=== PATIENT | female | born 1975 | race Caucasian/White ===

== ENCOUNTER 2016-05-19 19:24 | Emergency (ER) | payer OTHER ==
[~2016-05-19] VITALS: Ht 160 cm; Wt 79.4 kg
[2016-05-19] MEDS ORDERED: LAMO10TA PO (19:37)
[2016-05-19] MEDS ORDERED: ALBUTEROL 90 MCG/ACT 8GM HFA INHALER INH ONE (22:45)
[2016-05-19] MEDS ORDERED: AZITHROMYCIN 250 MG TAB PO ONE (22:45)
[2016-05-19] MEDS ORDERED: predniSONE 20 MG TAB PO ONE (22:45)
[2016-05-19] MEDS ORDERED: BENZONATATE 100 MG CAP PO ONE (22:45)
[2016-05-19] MEDS ORDERED: PRED20TA PO ×2 (22:50→23:08)
[2016-05-19] MEDS ORDERED: AZIT250T3 PO ×2 (22:50→23:08)
[2016-05-19] MEDS ORDERED: BENZ200C44 PO ×2 (22:50→23:08)
[2016-05-19 23:08] VITALS: BP 122/68
--- NOTE | 2016-05-20 09:41 | REP ---
TWO VIEW CHEST: Two views. There is no evidence of acute infiltrate. No pleural effusion is seen. The heart is normal in size. The mediastinal silhouette is unremarkable. The visualized osseous structures are intact. IMPRESSION: No acute pulmonary disease. Signed by Dread Shah MD 05/20/2016 03:53 P
== END 2016-05-19 23:14 | disposition home or self-care (01) ==
LOC: M ED 21:18
DX: J20.9 Acute bronchitis, unspecified (principal); Z79.2 Long term (current) use of antibiotics; Z79.52 Long term (current) use of systemic steroids; Z79.899 Other long term (current) drug therapy

== ENCOUNTER → 2016-10-22 | Outpatient (CLI) | payer OTHER ==
[~2016-10-22] MED LIST: AZIT-12 PO; BENZ200C53 PO; LAMO10TA PO; PRED20TA PO
[2016-10-22 08:56] LABS: BASO % 0.7 % (0.0-1.0); EOS # 0.2 K/mm3 (0.0-0.50); EOS % 2.5 % (0.0-3.0); LARGE UNSTAINED CELL # 0.1 K/mm3 (0.0-0.4); LARGE UNSTAINED CELL % 1.7 % (0.0-4.0); LYMPH # 1.3 K/mm3 (1.5-4.5); MEAN CORPUSCULAR HEMOGLOBIN 28.8 pg (27.0-33.0); MEAN CORPUSCULAR HGB CONC 32.7 g/dl (32.0-36.5); MEAN CORPUSCULAR VOLUME 88.1 fl (80.0-96.0); MONO # 0.5 K/mm3 (0.0-0.8); MONO % 7.1 % (0.0-5.0); NEUTROPHILS # 5.3 K/mm3 (1.8-7.7); PLATELET COUNT, AUTOMATED 294 k/mm3 (150-450); WHITE BLOOD COUNT 7.3 K/mm3 (4.0-10.0)
[2016-10-22 09:32] LABS: ALBUMIN 3.5 GM/DL (3.2-5.2); ALBUMIN/GLOBULIN RATIO 1.13 (1.00-1.93); ALKALINE PHOSPHATASE 90 U/L (45-117); ALT/SGPT 16 U/L (12-78); ANION GAP 6 MEQ/L (8-16); AST/SGOT 9 U/L (15-37); BILIRUBIN,TOTAL 0.4 MG/DL (0.2-1.0); BLOOD UREA NITROGEN 14 MG/DL (7-18); CALCIUM LEVEL 8.4 MG/DL (8.5-10.1); CARBON DIOXIDE LEVEL 28 MEQ/L (21-32); CHLORIDE LEVEL 105 MEQ/L (98-107); CHOLESTEROL LEVEL 163 MG/DL (<200); CREATININE FOR GFR 0.83 MG/DL (0.55-1.02); GLOMERULAR FILTRATION RATE > 60.0 (>58); GLUCOSE, FASTING 85 MG/DL (70-105); POTASSIUM SERUM 4.1 MEQ/L (3.5-5.1); SODIUM LEVEL 139 MEQ/L (136-145); TOTAL PROTEIN 6.6 GM/DL (6.4-8.2); TRIGLYCERIDES LEVEL 64 MG/DL (<150)
[2016-10-22 09:50] LABS: VITAMIN B12 LEVEL 652 PG/ML (247-911)
== END ==
LOC: M LAB 08:12
PROVIDERS: ATTEND Registered Nurse Psychiatric/Mental Health
DX: F31.81 Bipolar II disorder (principal)

== ENCOUNTER → 2016-10-22 | Outpatient (CLI) | payer OTHER ==
[2016-10-22 09:44] LABS: FOLLICLE STIMULATING HORMONE 8.2 mIU/mL; LUTEINIZING HORMONE 5.2 mIU/mL
[2016-10-22 09:52] LABS: ESTRADIOL 41.6 PG/ML
== END ==
LOC: M LAB 08:06
PROVIDERS: ATTEND Obstetrics & Gynecology
DX: N97.0 Female infertility associated with anovulation (principal)